=== PATIENT | female | born 1940 | race Caucasian/White ===

== ENCOUNTER → 2016-06-08 17:14 | Outpatient (CLI) | payer MEDICARE ==
[2013-02-05 08:02] VITALS: BMI 27.5
[~2016-06-08 17:14] MED LIST: CITRACAL + D CA1 TAB PO; MAXZIDE 75/501 TAB PO; MEVACOR20 MG PO
== END | disposition home or self-care (01) ==
LOC: D.MAMMO 10:00
DX: C50.811 Malignant neoplasm of overlapping sites of right female breast (principal)

== ENCOUNTER → 2016-08-01 06:51 | Outpatient (CLI) | payer MEDICARE ==
[2013-02-05 08:02] VITALS: BMI 27.5
== END | disposition home or self-care (01) ==
LOC: D.US 06:51
DX: N60.02 Solitary cyst of left breast (principal)

== ENCOUNTER → 2016-12-27 16:34 | Outpatient (CLI) | payer MEDICARE ==
[2013-02-05 08:02] VITALS: BMI 27.5
== END | disposition home or self-care (01) ==
LOC: D.MAMMO 09:30
DX: R92.8 Other abnormal and inconclusive findings on diagnostic imaging of breast (principal)

== ENCOUNTER → 2019-01-21 09:09 | Outpatient (CLI) | payer OTHER ==
[2013-02-05 08:02] VITALS: BMI 27.5
--- NOTE | 2019-01-24 15:25 | ST ---
PATIENT:SHIRA ESCALANTE MEDICAL RECORD: [id number] SEX: F LOCATION:[facility] ORDER #: ADMISSION DATE: 01/21/19 AGE OF PATIENT: 78 REFERRING PHYSICIAN: INTERPRETING PHYSICIAN: ALVINA MATTA MD DATE OF SERVICE: 01/21/2019 PROCEDURE: Nuclear stress test. INDICATION: Angina, shortness of breath, abnormal cardiac CT. She was exercised on standard Lexiscan protocol with 27 mCi of sestamibi injected at peak stress, 10 mCi used previously for rest images. FINDINGS: Gated SPECT reveals a preserved ejection fraction at 69% with decreased thickening and brightening throughout the inferior segments. SPECT imaging: Cardiolite was used as myocardial perfusion agent. There is a fixed perfusion defect inferiorly. This includes the basal, mid, apical, inferior segments. There is no evidence of reversible ischemia and the defect improves with stress showing reverse redistribution. The remaining segments are with homogeneous uptake at rest and stress. OVERALL IMPRESSION: This is a minimally abnormal nuclear stress test, but stable in that it shows fixed perfusion defect inferiorly compatible with previous inferior myocardial infarction, no ongoing reversibility or ischemic burden and ejection fraction preserved greater than 60%. 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
== END | disposition home or self-care (01) ==
LOC: D.HCCARDIO 09:09
PROVIDERS: ATTEND Internal Medicine Interventional Cardiology
DX: I20.9 Angina pectoris, unspecified (principal)

== ENCOUNTER 2019-02-12 08:00 | Outpatient (CLI) | payer OTHER ==
[2013-02-05 08:02] VITALS: BMI 27.5
== END 2019-02-12 23:59 | disposition home or self-care (01) ==
LOC: D.MAMMO 08:00
PROVIDERS: ATTEND Internal Medicine Hematology & Oncology
DX: C50.811 Malignant neoplasm of overlapping sites of right female breast (principal)

== ENCOUNTER → 2019-09-25 07:40 | Outpatient (CLI) | payer OTHER ==
[2013-02-05 08:02] VITALS: BMI 27.5
== END | disposition home or self-care (01) ==
LOC: D.NM 07:40
PROVIDERS: ATTEND Internal Medicine Hematology & Oncology
DX: C50.811 Malignant neoplasm of overlapping sites of right female breast (principal)

== ENCOUNTER → 2019-10-11 09:12 | Outpatient (CLI) | payer OTHER ==
[2013-02-05 08:02] VITALS: BMI 27.5
== END | disposition home or self-care (01) ==
LOC: D.MRI 10-09 14:29
PROVIDERS: ATTEND Internal Medicine Hematology & Oncology
DX: C50.811 Malignant neoplasm of overlapping sites of right female breast (principal); E78.5 Hyperlipidemia, unspecified

== ENCOUNTER 2020-05-04 10:30 | Outpatient (CLI) | payer OTHER ==
[2013-02-05 08:02] VITALS: BMI 27.5
== END 2020-05-04 23:59 | disposition home or self-care (01) ==
LOC: D.MAMMO 10:30
PROVIDERS: ATTEND Internal Medicine Hematology & Oncology
DX: C50.811 Malignant neoplasm of overlapping sites of right female breast (principal)